=== PATIENT | female | born 1940 | race Caucasian/White ===

== ENCOUNTER 2018-09-18 13:15 | Outpatient (CLI) | payer OTHER | END 2018-09-18 19:32 | disposition home or self-care (01) | LOC: SMA 13:15 | PROVIDERS: ATTEND Family Medicine | DX: Z12.31 Encounter for screening mammogram for malignant neoplasm of breast (principal) | CPT/HCPCS: 77067 ==

== ENCOUNTER 2019-06-06 10:50 | Emergency (ER) | payer OTHER ==
[~2019-06-06] VITALS: Ht 162.6 cm; Wt 73.5 kg
[2019-06-06 11:12] VITALS: BP_SYST 154; BP_SYST 156
--- NOTE | 2019-06-06 11:15 | NUR ---
Patient to ER bed 2 to gown for evaluation. Side rails up.
--- NOTE | 2019-06-06 11:18 | NUR ---
Patient presented to ER with abdominal pain. Patient A&Ox4, pain 3, denies N/V/D, skin pink and warm, ambulatory to ER. Patient states she has been constipated for several days and with her hx of Diverticulitis she was concerned prompting ER visit today.
--- NOTE | 2019-06-06 11:20 | NUR ---
ER Dr. Ellis at bedside examining patient.
[2019-06-06 11:40] LABS: BASOPHILS # (AUTO) 0.1 K/uL (0.0-0.2); BASOPHILS % (AUTO) 0.5 % (0.0-2.0); EOSINOPHILS # (AUTO) 0.1 K/uL (0.0-0.4); EOSINOPHILS % (AUTO) 0.5 % (0.0-4.0); HEMATOCRIT 41.3 % (36-48); HEMOGLOBIN 14.2 g/dL (12.0-16.0); LYMPHOCYTES # (AUTO) 1.7 K/uL (1.0-5.5); LYMPHOCYTES % (AUTO) 15.7 % (20.5-51.5); MEAN CORPUSCULAR HEMOGLOBIN 32 pg (27-31); MEAN CORPUSCULAR HGB CONC 34 % (32-36); MEAN CORPUSCULAR VOLUME 93 fL (79.0-98.0); MONOCYTES # (AUTO) 0.9 K/uL (0.0-1.0); MONOCYTES % (AUTO) 8.3 % (1.7-9.3); NEUTROPHILS # (AUTO) 8.2 K/uL (1.8-7.7); PLATELET COUNT (AUTO) 237 K/uL (130-430); RED BLOOD CELL COUNT(AUTO) 4.44 MIL/uL (4.2-6.2); RED CELL DISTRIBUTION WIDTH 13.4 % (9.0-15.0)
[2019-06-06 13:02] LABS: ANION GAP 6 (5-15); CALCIUM 8.7 mg/dL (8.4-11.0); CHLORIDE 100 mmol/L (98-107); CREATININE 1.05 mg/dL (0.55-1.30); GLUCOSE 104 mg/dL (70-99); POTASSIUM 3.4 mmol/L (3.5-5.1); SODIUM SERUM 133 mmol/L (136-145); UREA NITROGEN, BLOOD 10 mg/dL (8-21)
[2019-06-06 13:06] LABS: ALANINE AMINOTRANSFERASE 20 U/L (12-78); ALBUMIN 3.6 g/dL (3.4-4.8); ASPARTATE AMINOTRANSFERASE 16 U/L (10-37); LIPASE 94 U/L (73-393); TOTAL BILIRUBIN 0.7 mg/dL (0.0-1.0)
[2019-06-06 13:53] VITALS: BP_SYST 154
--- NOTE | 2019-06-06 13:53 | NUR ---
Patient given written and verbal discharge instructions and verbalizes understanding. ER MD discussed with patient the results and treatment provided. Patient in stable condition. ID arm band removed. Rx of Cipro, Flagyn and [place] given. Patient educated on pain management and to follow up with PMD. Pain Scale 2/10 tolerable for patient. Opportunity for questions provided and answered. Medication side effect fact sheet provided.
== END 2019-06-06 13:53 | disposition home or self-care (01) ==
LOC: SED 10:50
DX: K57.92 Diverticulitis of intestine, part unspecified, without perforation or abscess without bleeding (principal); I10 Essential (primary) hypertension
CPT/HCPCS: 36415; 80053; 81002; 83690-TC; 85025; 99284

== ENCOUNTER 2022-09-11 02:49 | Emergency (ER) | payer OTHER ==
[~2022-09-11] VITALS: Ht 162.6 cm; Wt 75.7 kg
[2022-09-11 02:57] VITALS: BP_SYST 150
--- NOTE | 2022-09-11 03:13 | NUR ---
Patient triaged and placed in room 8. VSS and patient appears in no acute distress at this time. Accompanied by FAMILY, awaiting available bed, and MD notified of need for MSE.
--- NOTE | 2022-09-11 03:13 | NUR ---
Patient to ER bed 8 to gown for evaluation. Side rails up.
--- NOTE | 2022-09-11 04:05 | NUR ---
MD Tate at bedside examining pt.
--- NOTE | 2022-09-11 04:30 | NUR ---
Pt taken to CT for imaging.
[2022-09-11 04:39] LABS: BILIRUBIN,URINE NEGATIVE (NEGATIVE); BLOOD, URINE 2+ (NEGATIVE); COLOR,URINE YELLOW (YELLOW); GLUCOSE,URINE NEGATIVE (NEGATIVE); KETONES,URINE NEGATIVE (NEGATIVE); LEUKOCYTE ESTERASE ,URINE NEGATIVE (NEGATIVE); NITRITE, URINE NEGATIVE (NEGATIVE); PROTEIN URINE NEGATIVE (NEGATIVE); UROBILINOGEN,URINE 0.2 (0.2-1.0)
[2022-09-11 04:57] LABS: CLARITY/URINE HAZY (CLEAR)
[2022-09-11 04:58] LABS: BACTERIA,URINE None Seen /HPF (None Seen); WBC,URINE 0-3 /HPF (0-3)
[2022-09-11 06:22] VITALS: BP_SYST 127
--- NOTE | 2022-09-11 06:26 | NUR ---
Patient given written and verbal discharge instructions and verbalizes understanding. ER MD Tate discussed with patient the results and treatment provided. Patient in stable condition. ID arm band removed. Patient educated on pain management and to follow up with PMD. Pain scale 0-10. Opportunity for questions provided and answered.
== END 2022-09-11 06:26 | disposition home or self-care (01) ==
LOC: SED 02:49
DX: R10.32 Left lower quadrant pain (principal); M54.50 Low back pain, unspecified; K59.00 Constipation, unspecified; I10 Essential (primary) hypertension; Z79.899 Other long term (current) drug therapy
CPT/HCPCS: 76376; 81000; 99284

== ENCOUNTER 2023-07-28 08:36 | Emergency (ER) | payer OTHER ==
[~2023-07-28] VITALS: Ht 154.9 cm; Wt 74.4 kg
[2023-07-28 08:41] VITALS: BP_SYST 165; PULSE 119; RESP 20; TEMP 98.6; O2SAT 98
[2023-07-28] MEDS ORDERED: BACITRACIN 1 GM OINT TP ONE (09:00)
[2023-07-28] MEDS ORDERED: DIPHTH,PERTUSS(ACELL),TET VAC 0.5 ML VIAL (Tdap) I.M. ONE (09:00)
== END 2023-07-28 10:30 | disposition home or self-care (01) ==
LOC: SED 08:36
DX: S01.01XA Laceration without foreign body of scalp, initial encounter (principal); I10 Essential (primary) hypertension; Z79.899 Other long term (current) drug therapy; W18.40XA Slipping, tripping and stumbling without falling, unspecified, initial encounter; Y93.89 Activity, other specified; Y92.89 Other specified places as the place of occurrence of the external cause; Y99.8 Other external cause status
CPT/HCPCS: 70450-TC; 76376; 90715; 99285

== ENCOUNTER 2023-07-30 11:16 | Emergency (ER) | payer OTHER ==
[~2023-07-30] VITALS: Ht 162.6 cm; Wt 75.7 kg
[2023-07-30 11:17] VITALS: BP_SYST 143; PULSE 85; RESP 17; TEMP 97.5; O2SAT 97
== END 2023-07-30 12:01 | disposition home or self-care (01) ==
LOC: SED 11:16
DX: S01.01XA Laceration without foreign body of scalp, initial encounter (principal); Z48.00 Encounter for change or removal of nonsurgical wound dressing; I10 Essential (primary) hypertension; Z79.899 Other long term (current) drug therapy; W22.8XXA Striking against or struck by other objects, initial encounter; Y93.89 Activity, other specified; Y92.89 Other specified places as the place of occurrence of the external cause; Y99.8 Other external cause status
CPT/HCPCS: 99281

== ENCOUNTER 2023-08-30 05:00 | Emergency (ER) | payer OTHER ==
[~2023-08-30] VITALS: Ht 160 cm; Wt 77.1 kg
[2023-08-30 05:05] VITALS: BP_SYST 160; PULSE 80; RESP 16; TEMP 98.1; O2SAT 98
[2023-08-30] MEDS ORDERED: ACET1TAB93 PO (05:30)
[2023-08-30] MEDS: ACETAMINOPHEN 325 MG TABLET PO ONE (05:35)
== END 2023-08-30 05:50 | disposition home or self-care (01) ==
LOC: SED 05:00
DX: S66.912A Strain of unspecified muscle, fascia and tendon at wrist and hand level, left hand, initial encounter (principal); M79.602 Pain in left arm; X50.0XXA Overexertion from strenuous movement or load, initial encounter; Y93.89 Activity, other specified; Y92.89 Other specified places as the place of occurrence of the external cause; Y99.8 Other external cause status
CPT/HCPCS: 99282